=== PATIENT | male | born 1965 | race Caucasian/White ===

== ENCOUNTER → 2021-12-29 | Outpatient (CLI) | payer OTHER | LOC: COL.RAD 12:15 | DX: R59.0 Localized enlarged lymph nodes (principal) ==

== ENCOUNTER → 2022-01-17 | Outpatient (CLI) | payer OTHER ==
[~2022-01-17] VITALS: Ht 177.8 cm; Wt 100.0 kg
[~2022-01-17] MED LIST: HYDROXYCHLOROQ100 MG PO
[2022-01-17 09:13] VITALS: BP 106/71; PULSE 70; TEMP 98
[2022-01-17 10:25] VITALS: BP 119/83; PULSE 63
== END ==
LOC: COL.RAD 08:39
DX: R59.0 Localized enlarged lymph nodes (principal)